=== PATIENT | female | born 1975 | race Caucasian/White ===

== ENCOUNTER 2017-07-31 17:20 | Inpatient (IN) | payer BC ==
[2017-07-31] MEDS ORDERED: OXYTOCIN/DEXTROSE 5%-WATER 30 UNITS/500 ML BAG IV ONE (19:47)
[2017-07-31] MEDS ORDERED: LIDOCAINE HCL 50 ML VIAL PERI PRN (19:47)
[2017-07-31] MEDS ORDERED: RINGER'S SOLUTION,LACTATED 1,000 ML IV ONE (19:47)
[2017-07-31] MEDS ORDERED: NALOXONE HCL 1 MG/1 ML SYRG IV PRN (20:15)
[2017-07-31] MEDS ORDERED: BUPIVACAINE HCL/0.9 % NACL/PF 250 ML EP PRN (20:15)
[2017-07-31] MEDS ORDERED: ONDANSETRON HCL/PF 2 MG/ML VIAL IV PRN (20:15)
[2017-07-31] MEDS ORDERED: BUPIVACAINE HCL/PF 30 ML VIAL EP SCH (20:15)
[2017-07-31] MEDS: DEXTROSE 5%-LACTATED RINGERS 1,000 ML IV PRN (20:57)
--- NOTE | 2017-07-31 21:26 | OR ---
Anesthesia Procedure Note - Anesthesia Procedure Note Date of Service: 07/31/17 Narrative: Vital Signs - Last Taken Temp 36.9 C 07/31/17 21:22 Pulse 72 07/31/17 21:22 Resp 16 07/31/17 21:22 BP 120/74 07/31/17 21:22 Pulse Ox 98 07/31/17 21:22 07/31/17 21:26 ANESTHESIA PROCEDURE NOTE Date of Procedure: 07/31/2017. Time of procedure: 2100. Performed by: Law Campos CRNA [employer] Specialist: None. Preprocedure diagnosis: Active labor. Post procedure diagnosis: Same. Procedure: Insertion of labor epidural. Indications: The patient is a 42 -year-old female in active labor requesting labor epidural for pain management. Findings: See below. Details of the procedure: The patient was placed in a sitting position. DuraPrep as well as Betadine swabs X3 was applied to the patient's back. Patient was then draped in a sterile fashion. Lidocaine 1% was infiltrated to the skin and subcutaneous tissues at the level of the L3-4 interspace. The epidural space was identified using a 18-gauge Tuohy needle with loss-of- resistance technique. Epidural catheter was inserted to a depth of 9 centimeters at skin. Negative test dose was elicited using 3 mL of 1.5% preservative-free lidocaine plus epinephrine 1 200,000. The epidural catheter was then taped and secured in place. A loading dose of 8 mL of 0.25% preservative-free bupivacaine was administered to the epidural catheter after negative aspiration for blood and CSF. EBL: Minimal. Fluids: N/A. Specimen: N/A. Post procedure condition: The patient tolerated the procedure well. No complications were noted. Thank you for this consultation. Law Campos CRNA
--- NOTE | 2017-07-31 21:43 | PN ---
Progess Note - Interim Narrative: 07/31/17 21:41 Patient comfortable with epidural Vital signs stable. FHT: 130 baseline, reassuring Contractions q 2-3 min Cervix: 8/75/-2, AROM-clear Impression: Intrauterine at 37-3/7 weeks in labor Plan: Continue present plan
[2017-08-01] MEDS: DEXTROSE 5%-LACTATED RINGERS 1,000 ML IV PRN (01:11)
[2017-08-01] MEDS ORDERED: BISACODYL 10 MG SUPP.RECT RC PRN (02:33)
[2017-08-01] MEDS ORDERED: oxyCODONE HCL/ACETAMINOPHEN 1 TAB TABLET PO PRN ×2 (02:33)
[2017-08-01] MEDS ORDERED: OXYTOCIN/DEXTROSE 5%-WATER 30 UNITS/500 ML BAG IV ONE (02:33)
[2017-08-01] MEDS ORDERED: SENNOSIDES 8.6 MG TABLET PO PRN (02:33)
[2017-08-01] MEDS ORDERED: IBUPROFEN 800 MG TABLET PO PRN (02:33)
[2017-08-01] MEDS ORDERED: BENZOCAINE/MENTHOL 81 SPRAY CAN TP PRN (02:33)
[2017-08-01] MEDS ORDERED: GLYCERIN/WITCH HAZEL LEAF 40 APPL BOX TP PRN (02:33)
[2017-08-01] MEDS ORDERED: HYDROCORTISONE 30 APPL TUBE TP PRN (02:33)
--- NOTE | 2017-08-01 02:37 | OR ---
Operative Report - Dictated Report Narrative: Spontaneous vaginal delivery of viable male at 0 213 on 08/01/2017 in ISELA position with Apgars 8 and 9, weighing 3002 grams Cord clamping delayed approximately 1 minute Placenta delivered complete, intact, with three vessel cord Estimated blood loss: less than 50 ml Lacerations: First-degree vaginal laceration with no repair History for Definition: * The number of deliveries resulting in a live the patient experienced prior to current hospitalization * The previous delivery of live twins or any live multiple gestation is considered one live event. *If primagravida or nulliparous is documented select zero for the number of previous live births. Live Events: 1
[2017-08-01] MEDS ORDERED: FERROUS SULFATE 325 MG TABLET PO SCH (09:00)
[2017-08-01] MEDS ORDERED: PRENATAL VITS96/IRON FUM/FOLIC 1 TAB TABLET PO SCH (09:00)
[2017-08-01] MEDS ORDERED: DOCUSATE SODIUM 100 MG CAPSULE PO SCH (09:00)
[2017-08-01 16:29] VITALS: BP 114/67
== END 2017-08-01 15:50 | disposition home or self-care (01) | DRG 775 ==
LOC: OB 17:20
PROVIDERS: ADMIT Obstetrics & Gynecology; ATTEND Obstetrics & Gynecology
PROC: 10E0XZZ Delivery of Products of Conception, External Approach (ICD-10-PCS; principal; 2017-07-31)
PROC: 10907ZC Drainage of Amniotic Fluid, Therapeutic from Products of Conception, Via Natural or Artificial Opening (ICD-10-PCS; 2017-07-31)
PROC: 4A1HXCZ Monitoring of Products of Conception, Cardiac Rate, External Approach (ICD-10-PCS; 2017-07-31)
PROC: 00HU33Z Insertion of Infusion Device into Spinal Canal, Percutaneous Approach (ICD-10-PCS; 2017-07-31)
DX: O70.0 First degree perineal laceration during delivery (principal); Z3A.37 37 weeks gestation of pregnancy; Z37.0 Single live birth